=== PATIENT | male | born 1945 | race Native Hawaiian/Other Pacific Islander ===

== ENCOUNTER 2020-08-09 12:47 | Outpatient (CLI) | payer OTHER | END 2020-08-09 21:36 | disposition home or self-care (01) | LOC: INF 12:47 | PROVIDERS: ATTEND Internal Medicine Endocrinology, Diabetes & Metabolism | DX: Z23 Encounter for immunization (principal) | CPT/HCPCS: 96372 ==

== ENCOUNTER 2020-09-06 11:22 | Outpatient (CLI) | payer OTHER | END 2020-09-06 19:52 | disposition home or self-care (01) | LOC: INF 11:22 | PROVIDERS: ATTEND Internal Medicine Endocrinology, Diabetes & Metabolism | DX: Z23 Encounter for immunization (principal) | CPT/HCPCS: 96372 ==